=== PATIENT | female | born 1945 | race Caucasian/White ===

== ENCOUNTER 2021-02-04 08:48 | Observation (INO) ==
[2021-02-04] MEDS ORDERED: Lactated Ringers 1000 ml BAG 1,000 ML IV ONE (09:17)
[2021-02-04 10:02] LABS: ABS Basophils 0.1 10^3/ul (0-0.2); ABS Eosinophils 0.1 10^3/ul (0-0.6); ABS Monocytes 0.5 10^3/ul (0-0.8); ABS Neutrophils 4.1 10^3/ul (1.5-7.7); Hematocrit 38 % (35-47); Hemoglobin 12.8 g/dL (12.0-16.0); Lymphocyte % 29.5 %; Mean Corpuscular HGB Conc 34 g/dL (31-36); Mean Corpuscular Hemoglobin 32 pg (27-31); Mean Corpuscular Volume 95 fL (80-97); Mean Platelet Volume 8.5 fL (7.4-10.4); Nucleated Red Blood Cells % 0.1; Platelet Count 281 10^3/uL (150-450); Red Cell Distribution Width 17 % (10-15); White Blood Count 6.7 10^3/uL (3.5-10.8)
[2021-02-04 10:16] LABS: INR 1.08 (0.86-1.15)
[2021-02-04 10:17] LABS: Albumin 4.1 g/dL (3.2-5.2); Albumin/Globulin Ratio 1.5 (1-3); C Reactive Protein 1.41 mg/L (<8.01); Calcium 9.7 mg/dL (8.6-10.3); EGFR African American 57.1 (>60); EGFR Non-African American 47.2 (>60); Globulin 2.8 g/dL (2-4); Potassium 3.7 mmol/L (3.5-5.0); Total Bilirubin 0.3 mg/dL (0.2-1.0); Total Protein 6.9 g/dL (6.4-8.9)
[2021-02-04 10:18] LABS: Troponin I 0.01 ng/mL (<0.03)
[2021-02-04 10:25] LABS: Influenza A Molecular Negative (Negative); Influenza B Molecular Negative (Negative)
[2021-02-04] MEDS ORDERED: Iodixanol (CONTRAST) 320 MG/ML 100 ML SDV IV ONE (11:05)
[2021-02-04 11:20] LABS: Urine Appearance Clear; Urine Bilirubin Negative (Negative); Urine Blood Negative (Negative); Urine Color Straw; Urine Glucose Negative (Negative); Urine Ketones Trace (Negative); Urine Nitrite Negative (Negative); Urine Protein Negative (Negative); Urine Specific Gravity 1.011 (1.002-1.030); Urine Urobilinogen Negative (Negative)
[2021-02-04] MEDS ORDERED: Calcium Carb (TUMS) 500 mg CHEW TAB PO PRN (20:10)
[2021-02-04] MEDS ORDERED: Calcium Carb (TUMS) 500 mg CHEW TAB ONE (20:15)
[2021-02-04] MEDS: Heparin 5000 UNITS/ML 1 mL VIAL SUBCUT SCH (20:26)
[2021-02-05] MEDS: Heparin 5000 UNITS/ML 1 mL VIAL SUBCUT SCH ×2 (04:36→14:33)
[2021-02-05 13:07] VITALS: BP 137/98
[2021-02-05] MEDS ORDERED: Regadenoson 0.4 MG/5 ML SYRINGE ONE (13:10)
== END 2021-02-05 16:29 | disposition home or self-care (01) ==
LOC: ED 08:48 → MED 08:48 → SUATTDRO 16:49 → MEDTELE 02-05 04:42
PROVIDERS: ADMIT Internal Medicine; ATTEND Hospitalist